=== PATIENT | male | born 1960 | race Caucasian/White ===

== ENCOUNTER → 2023-12-01 | Outpatient (CLI) | payer MEDICARE ==
[2023-12-01 13:17] LABS: Basophils # (A) 0.03 X 10*3/uL (0.00-0.10); Basophils % (A) 0.6 %; Eosinophils # (A) 0.12 X 10*3/uL (0.04-0.35); Eosinophils % (A) 2.6 %; HCT 42.5 % (39.6-50.0); HGB 13.6 g/dL (13.0-17.0); Lymphocytes # (A) 1.72 X 10*3/uL (0.90-5.00); Lymphocytes % (A) 36.9 %; MCH 29.7 pg (27.0-32.0); MCV 92.8 FL (80.0-97.0); Mean Platelet Volume 12.2 FL (9.5-12.2); Monocytes # (A) 0.42 X 10*3/uL (0.20-1.00); NRBC Per 100 WBC 0 X 10*3/uL (0.00-0.01); Neutrophils # (A) 2.36 X 10*3/uL (1.80-7.70); Neutrophils % (A) 50.7 %; Platelet Count 177 X 10*3/uL (140-440); RBC 4.58 X 10*6/uL (4.40-5.60); RDW 13.9 % (11.5-14.5); WBC 4.66 X 10*3/uL (4.50-10.00)
[2023-12-01 13:54] LABS: ALT 13 U/L (10-49); AST 31 U/L (14-35); Albumin 4.8 g/dL (3.8-4.9); Alkaline Phosphatase 106 U/L (41-126); BUN/Creat Ratio 18.11 Ratio (12.00-20.00); Blood Urea Nitrogen 16.3 mg/dL (9.0-27.0); Calcium 9.5 mg/dL (8.7-10.3); Chloride 105 mmol/L (96-109); Chol/HDL Ratio 2.41 Ratio; Glucose 109 mg/dL (70-110); LDL Cholesterol,Calculated 99.8 mg/dL (0.0-131.0); Potassium 4.5 mmol/L (3.5-5.5); Sodium 141 mmol/L (135-145); Total Bilirubin 0.6 mg/dL (0.3-1.2); Total Protein 6.8 g/dL (6.2-8.2); VLDL Calculation 11.36 mg/dL (5.00-40.00)
[2023-12-01 14:08] LABS: Appearance,Urine Clear (Clear); Bilirubin,Urine Negative (Negative); Blood,Urine Negative (Negative); Color,Urine Yellow (Yellow); Ketones,Urine Negative (Negative); Nitrite,Urine Negative (Negative); PH, Urine 5.5; Specific Gravity,Urine 1.021 (1.001-1.030)
== END | disposition home or self-care (01) ==
LOC: LABWHC1 07:47
PROVIDERS: ATTEND Internal Medicine
DX: Z12.5 Encounter for screening for malignant neoplasm of prostate (principal); Z11.59 Encounter for screening for other viral diseases; N20.0 Calculus of kidney; I10 Essential (primary) hypertension; E03.9 Hypothyroidism, unspecified
CPT/HCPCS: 36415; 80053; 80061; 81003; 84439; 84443; 85025; 86803

== ENCOUNTER → 2024-01-01 | Outpatient (CLI) | payer MEDICARE ==
[2024-01-01 19:37] LABS: Gliadin AB IgA, Deaminated Negative (Negative); Gliadin AB IgA, Unit 1.7 U/mL; Gliadin AB IgG, Deaminated Negative (Negative); Gliadin AB IgG, Unit <0.4 U/mL
== END | disposition home or self-care (01) ==
LOC: LABT 10:09
PROVIDERS: ATTEND Internal Medicine Endocrinology, Diabetes & Metabolism
DX: E03.8 Other specified hypothyroidism (principal); R10.30 Lower abdominal pain, unspecified
CPT/HCPCS: 82024; 82533; 83516; 84443; 84480

== ENCOUNTER → 2024-03-26 | Outpatient (CLI) | payer MEDICARE | END | disposition home or self-care (01) | LOC: LABWHC1 13:23 | PROVIDERS: ATTEND Internal Medicine Endocrinology, Diabetes & Metabolism | DX: E03.8 Other specified hypothyroidism (principal) | CPT/HCPCS: 36415; 84443; 84480 ==

== ENCOUNTER → 2024-05-10 | Outpatient (CLI) | payer MEDICARE ==
[2024-05-10 15:38] LABS: T4, Free (Free Thyroxine) 1.33 ng/dL (0.80-1.80)
== END | disposition home or self-care (01) ==
LOC: LABWHC1 11:20
PROVIDERS: ATTEND Internal Medicine Endocrinology, Diabetes & Metabolism
DX: E03.8 Other specified hypothyroidism (principal)
CPT/HCPCS: 36415; 84439; 84443

== ENCOUNTER → 2024-09-06 | Outpatient (CLI) | payer MEDICARE | END | disposition home or self-care (01) | LOC: LABWHC1 11:49 | PROVIDERS: ATTEND Internal Medicine Endocrinology, Diabetes & Metabolism | DX: E03.8 Other specified hypothyroidism (principal) | CPT/HCPCS: 36415; 84443 ==

== ENCOUNTER → 2024-09-28 | Outpatient (CLI) | payer MEDICARE ==
[2024-09-28 10:09] LABS: Basophils # (A) 0.06 X 10*3/uL (0.00-0.10); Basophils % (A) 1.2 %; Eosinophils # (A) 0.22 X 10*3/uL (0.04-0.35); Eosinophils % (A) 4.3 %; HCT 45.9 % (39.6-50.0); HGB 15.0 g/dL (13.0-17.0); Immature Grans, Automated 0.40 %; Lymphocytes # (A) 2.11 X 10*3/uL (0.90-5.00); Lymphocytes % (A) 41.5 %; MCH 29.2 pg (27.0-32.0); MCHC 32.7 g/dL (32.0-37.0); MCV 89.5 FL (80.0-97.0); Monocytes # (A) 0.40 X 10*3/uL (0.20-1.00); Monocytes % (A) 7.9 %; NRBC Per 100 WBC 0 X 10*3/uL (0.00-0.01); Neutrophils # (A) 2.27 X 10*3/uL (1.80-7.70); Neutrophils % (A) 44.7 %; Platelet Count 183 X 10*3/uL (140-440); RBC 5.13 X 10*6/uL (4.40-5.60); RDW 13.5 % (11.5-14.5); WBC 5.08 X 10*3/uL (4.50-10.00)
[2024-09-28 15:31] LABS: ALT 13 U/L (10-49); AST 31 U/L (14-35); Albumin 4.8 g/dL (3.8-4.9); Albumin/Globulin Ratio 2.18 Ratio (1.60-3.17); Alkaline Phosphatase 95 U/L (41-126); Anion Gap 11.50 mmol/L (4.00-12.00); BUN/Creat Ratio 14.60 Ratio (12.00-20.00); Blood Urea Nitrogen 14.6 mg/dL (9.0-27.0); Calcium 9.4 mg/dL (8.7-10.3); Carbon Dioxide 23.5 mmol/L (21.6-31.8); Chloride 101 mmol/L (96-109); Cholesterol 210.00 mg/dL (0.00-200.00); Globulin 2.2 g/dL (1.6-3.3); Glucose 104 mg/dL (70-110); HDL Cholesterol 44.00 mg/dL (40.00-60.00); LDL Cholesterol,Calculated 138.6 mg/dL (0.0-131.0); Magnesium 2.1 mg/dL (1.5-2.4); Potassium 4.5 mmol/L (3.5-5.5); Prostate Specific Antigen 2.89 ng/mL (0.000-4.500); Sodium 136 mmol/L (135-145); Total Protein 7.0 g/dL (6.2-8.2); Triglycerides 137.00 mg/dL (0.00-149.00); VLDL Calculation 27.40 mg/dL (5.00-40.00)
== END | disposition home or self-care (01) ==
LOC: LABWHC1 07:50
PROVIDERS: ATTEND Internal Medicine
DX: Z12.5 Encounter for screening for malignant neoplasm of prostate (principal); I10 Essential (primary) hypertension
CPT/HCPCS: 36415; 80053; 80061; 83735; 84153; 85025